=== PATIENT | male | born 1960 | race African-American/Black ===

== ENCOUNTER 2020-12-11 17:56 | Inpatient (IN) | payer MEDICAID ==
[~2020-12-11] VITALS: Ht 177.8 cm; Wt 87.1 kg
--- NOTE | 2020-12-11 18:15 | NUR ---
pt [facility]len [facility] per ems report, pt was noted acting bizzare and not responding to ems. pt placed on monitor. stable vitals. nad noted. awaiting md jimenez.
--- NOTE | 2020-12-11 18:24 | NUR ---
er provided at bedside for eval.
--- NOTE | 2020-12-11 18:45 | NUR ---
pt to radiology for head ct scan via [facility].
--- NOTE | 2020-12-11 19:11 | NUR ---
report given to jeanine suh for alicja.
[2020-12-11 19:14] LABS: BASOPHILS % (AUTO) 0.2 % (0.0-2.0); EOSINOPHILS % (AUTO) 0.2 % (0.0-6.0); HEMATOCRIT 42 % (39-51); HEMOGLOBIN 13.8 g/dL (13.5-17.5); LYMPHOCYTES # (AUTO) 0.8 K/uL (0.8-4.8); LYMPHOCYTES % (AUTO) 5.4 % (20.0-44.0); MEAN CORPUSCULAR HGB CONC 33 g/dl (31.0-36.0); MEAN CORPUSCULAR VOLUME 83 fL (80-96); MONOCYTES # (AUTO) 0.7 K/uL (0.1-1.30); MONOCYTES % (AUTO) 4.9 % (2.0-12.0); NEUTROPHILS # (AUTO) 13.5 K/uL (1.8-8.9); NEUTROPHILS % (AUTO) 89.3 % (43.0-81.0); PLATELET COUNT (AUTO) 326 K/uL (150-450); RED BLOOD CELL COUNT(AUTO) 4.98 MIL/uL (4.5-6.0); WHITE BLOOD COUNT (AUTO) 15.1 K/uL (4.3-11.0)
[2020-12-11 19:21] LABS: BILIRUBIN,URINE MODERATE (NEGATIVE); COLOR,URINE YELLOW (YELLOW); LEUKOCYTE ESTERASE ,URINE Negative (NEGATIVE); NITRITE, URINE Negative (NEGATIVE); PROTEIN,URINE 30 mg/dl (NEGATIVE); UGLUCOSE Negative (NEGATIVE); UROBILINOGEN,URINE 0.2 EU/dL (0.2)
[2020-12-11 19:24] LABS: CALCIUM, SERUM 9.6 mg/dL (8.5-10.1); CARBON DIOXIDE 27 mmol/L (21-32); CHLORIDE 104 mmol/L (98-107); CREATININE 1.3 mg/dL (0.6-1.3); GLUCOSE 108 mg/dL (74-106); SODIUM SERUM 141 mmol/L (136-145); UREA NITROGEN, BLOOD 39 mg/dL (7-18)
[2020-12-11 19:27] LABS: BACTERIA,URINE Rare /HPF (None Seen); SQUAMOUS EPITHELIAL CELL,UR Few /HPF (None Seen); WBC,URINE NONE SEEN /HPF (0-3)
[2020-12-11 19:29] LABS: ACETAMINOPHEN < 2 ug/ml (10-30); ALANINE AMINOTRANSFERASE 32 U/L (12-78); ALBUMIN 4.7 g/dL (3.4-5.0); ALCOHOL, BLOOD < 3 mg/dL (0-0); ALKALINE PHOSPHATASE 124 U/L (46-116); ASPARTATE AMINOTRANSFERASE 21 U/L (15-37); BILIRUBIN,DIRECT 0.2 mg/dL (0.0-0.2); BILIRUBIN,TOTAL 0.6 mg/dL (0.2-1.0); TOTAL PROTEIN, SERUM 9.8 g/dL (6.4-8.2)
--- NOTE | 2020-12-11 20:15 | NUR ---
covid swab sent to lab
[2020-12-11] MEDS ORDERED: ZOLPIDEM TARTRATE 5 MG TABLET PO PRN (23:30)
[2020-12-11] MEDS ORDERED: Z GUARD REMEDY 2 OZ OINT TP PRN (23:30)
[2020-12-11] MEDS ORDERED: MAGNESIUM HYDROXIDE 30 ML UDC PO PRN (23:30)
[2020-12-11] MEDS ORDERED: ONDANSETRON HCL/PF 4 MG/2 ML VIAL IVP PRN (23:30)
[2020-12-11] MEDS ORDERED: MAG HYDROX/AL HYDROX/SIMETH 30 ML UDC PO PRN (23:30)
--- NOTE | 2020-12-12 00:29 | NUR ---
PCR COLLECTED AND SENT TO LAB
--- NOTE | 2020-12-12 03:14 | NUR ---
REPORT GIVEN TO PETROS CANDELARIO
--- NOTE | 2020-12-12 03:25 | NUR ---
PATIENT TRANSFERRED UNDER [facility]
[2020-12-12 03:30] VITALS: BP 126/71
--- NOTE | 2020-12-12 03:30 | NUR ---
DIRECTOR COMMUNITY CENTERBRICK GRADER NOTE RECEIVED PT IN BED WITH EYES CLOSED, AROUSABLE TO STIMULATION. A/O X2. PT IS CONFUSED AT TIMES. PT IS STABLE ON ROOM AIR. NO SOB OR S/S OF RESPIRATORY DISTRESS NOTED. PT ON EXTERNAL MACHINE MOLDER SQUEEZE READING ST AT 118 BPM. PT HAS NO C/O PAIN OR DISCOMFORT AT THIS TIME. IV ACCESS IN RIGHT AC #18, INTACT AND PATENT. PT ORIENTED TO STAFF, ROOM, AND UNIT. SAFETY MEASURES MAINTAINED. BED IN LOWEST LOCKED POSITION, HOB ELEVATED, SIDE RAILS UP X2. CALL LIGHT AND TABLE WITHIN REACH. WILL CONTINUE TO MONITOR.
--- NOTE | 2020-12-12 06:02 | NUR ---
CORRECTIONS OFFICER CLOSING NOTE PT IS IN BED WITH EYES CLOSED, AROUSABLE TO STIMULATION. A/O X2. PT IS CONFUSED AT TIMES. PT IS STABLE ON ROOM AIR. NO SOB OR S/S OF RESPIRATORY DISTRESS NOTED. PT ON EXTERNAL FOREST SUPERVISOR READING ST AT 103 BPM. PT HAS NO C/O PAIN OR DISCOMFORT AT THIS TIME. IV ACCESS IS INTACT, PATENT, AND FLUSHING WELL. ALL NEEDS HAVE BEEN MET. SAFETY PRECAUTIONS MAINTAINED AT ALL TIMES. BED IN LOWEST LOCKED POSITION, HOB ELEVATED, SIDE RAILS UP X2. CALL LIGHT AND TABLE WITHIN REACH. WILL ENDORSE TO ONCOMING NURSE FOR DANIELLE.
[2020-12-12 06:47] LABS: BASOPHILS % (AUTO) 0.3 % (0.0-2.0); EOSINOPHILS % (AUTO) 1.7 % (0.0-6.0); HEMATOCRIT 38 % (39-51); HEMOGLOBIN 12.7 g/dL (13.5-17.5); LYMPHOCYTES # (AUTO) 1.2 K/uL (0.8-4.8); LYMPHOCYTES % (AUTO) 9.8 % (20.0-44.0); MEAN CORPUSCULAR HGB CONC 33 g/dl (31.0-36.0); MEAN CORPUSCULAR VOLUME 84 fL (80-96); MONOCYTES # (AUTO) 0.8 K/uL (0.1-1.30); MONOCYTES % (AUTO) 6.9 % (2.0-12.0); NEUTROPHILS # (AUTO) 9.8 K/uL (1.8-8.9); NEUTROPHILS % (AUTO) 81.3 % (43.0-81.0); PLATELET COUNT (AUTO) 286 K/uL (150-450); RED BLOOD CELL COUNT(AUTO) 4.56 MIL/uL (4.5-6.0); WHITE BLOOD COUNT (AUTO) 12.1 K/uL (4.3-11.0)
[2020-12-12] MEDS ORDERED: IV D5/0.45 NACL 1,000 ML IV PRN (07:30)
--- NOTE | 2020-12-12 07:34 | NUR ---
received asleep no acute distress.
[2020-12-12 07:44] LABS: CALCIUM, SERUM 9.4 mg/dL (8.5-10.1); MAGNESIUM 2.7 mg/dL (1.8-2.4); PHOSPHORUS 4.7 mg/dL (2.5-4.9); POTASSIUM 3.6 mmol/L (3.5-5.1)
[2020-12-12] MEDS: PANTOPRAZOLE 40 MG TABLET.DR PO SCH (07:49)
--- NOTE | 2020-12-12 07:54 | NUR ---
patient awake,alert ate 100% of breakfast without difficulty DR. LONG MADE AWARE AND REVERSE ORDERS.
[2020-12-12 07:59] LABS: THYROID STIMULATING HORMONE 0.619 uIU/mL (0.358-3.74)
[2020-12-12 08:20] VITALS: BP 134/78
--- NOTE | 2020-12-12 10:07 | NUR ---
offered DVT PUMPS PT. REFUSED , AWARE.
[2020-12-12] MEDS: QUETIAPINE FUMARATE 25 MG TABLET PO SCH ×2 (12:01→16:38)
--- NOTE | 2020-12-12 12:17 | NUR ---
talking to self ,seen by noelle horner and placed pt. on seroquel,will continue to monitor.
[2020-12-12 16:09] VITALS: BP 122/67
--- NOTE | 2020-12-12 18:51 | NUR ---
patient calm quiet no acute distress will continue to monitor.
[2020-12-12 20:00] VITALS: BP 109/68
[2020-12-13 04:00] VITALS: BP 114/72
--- NOTE | 2020-12-13 04:20 | NUR ---
RN notes Alert but very confused, talks to self, able to follow commands. No distress noted. Breathing even and unlabored. On room air tolerating well. Vital signs wnl. No physical manifestation of pain or discomfort. Kept clean and dry. Will endorse to next shift for continuity of care.
[2020-12-13] MEDS: PANTOPRAZOLE 40 MG TABLET.DR PO SCH (07:19)
[2020-12-13] MEDS: QUETIAPINE FUMARATE 25 MG TABLET PO SCH ×2 (08:00→16:42)
--- NOTE | 2020-12-13 08:06 | NUR ---
received awake alert,no acute distress,talking to self.
[2020-12-13 08:42] VITALS: BP 136/70
--- NOTE | 2020-12-13 09:20 | NUR ---
faxed to gps facesheet for psyche consult w/ dr. naz drake np.
--- NOTE | 2020-12-13 10:38 | NUR ---
report given to ishmael for continuity of care.
--- NOTE | 2020-12-13 11:30 | NUR ---
rn notes seen and examined by Dr. Vasquez with NNO at this time.
[2020-12-13 12:00] VITALS: BP 118/73
[2020-12-13] MEDS: risperiDONE 1 MG TABLET PO SCH (16:42)
--- NOTE | 2020-12-13 18:39 | NUR ---
RN notes Patient in bed, a/o x3, follows command, talks to self. seen by psychiatrist, medication ordered and given. No distress noted. Breathing even and unlabored. On room air, well tolerated. No manifestation of pain or discomfort. Kept clean and dry. Will endorse to next shift for continuity of care.
--- NOTE | 2020-12-13 19:50 | NUR ---
SUPERVISOR MAINSPRING FABRICATION NOTE REC'D PT IN BED. PT IS A/O X1-2. RESPONDS TO NAME. FOLLOWS COMMANDS. PT TALKS TO SELF, BASELINE. COOPERATIVE WITH CARE. PT IS ON ROOM AIR, TOLERATING WELL. NO S/S OF RESP DISTRESS OR SOB NOTED. PT IS ON M/S MONITORING. PT IV SITE, INTACT FLUSHED. PT DENIES PAIN. PT VERBALIZES THEY ARE HUNGRY, NOURISHMENT PROVIDED. PT ABLE TO USE URINAL INDEPENDENTLY. SAFETY MEASURES IN PLACE. HOB ELEVATED. SIDE RAILS UP X2. BED LOCKED IN LOWEST POSITION WITH BED ALARM ON. CALL LIGHT WITHIN REACH. WILL CONT TO MONITOR THROUGHOUT SHIFT.
[2020-12-13 20:00] VITALS: BP 117/64
[2020-12-14 04:00] VITALS: BP 94/58
--- NOTE | 2020-12-14 06:53 | NUR ---
FINANCIAL MANAGEMENT ANALYST CLOSING NOTE NO SIGNIFICANT CHANGE IN PT CONDITION, PT REMAINS ON ROOM AIR. NO DISTRESS NOTED. BREATHING EVEN AND UNLABORED. BED BATH DONE, LINENS CHANGED. PT DENIES PAIN. ALL NEEDS ATTENDED AT THIS TIME. SAFETY MEASURES IN PLACE. BED LOCKED LOWEST POSITION. BED ALARM ON. SIDE RAILS UP X2. CALL LIGHT WITHIN REACH WILL ENDORSE TO AM SHIFT FOR CONTINUATION OF CARE.
--- NOTE | 2020-12-14 07:30 | NUR ---
NATURAL SCIENCES PROFESSOR OPENING NOTE RECEIVED REPORT FROM PM NURSE. PT IN BED. PT IS A/O X1-2. RESPONDS TO NAME AND PLACE. FOLLOWS COMMANDS. PT TALKS TO SELF, BASELINE. COOPERATIVE WITH CARE. PT IS ON ROOM AIR, TOLERATING WELL. NO S/S OF RESP DISTRESS OR SOB NOTED. IV SITE, INTACT AND PATENT. DENIES PAIN. USE URINAL INDEPENDENTLY. SAFETY MEASURES IN PLACE. BED IS LOW AND IN LOCKED POSITION.CALL LIGHT WITHIN REACH. BED ALARM ON,SRX3.WILL CONTINUE TO MONITOR.
[2020-12-14 08:00] VITALS: BP 121/72
[2020-12-14] MEDS: risperiDONE 1 MG TABLET PO SCH ×2 (08:44→16:13)
[2020-12-14] MEDS: PANTOPRAZOLE 40 MG TABLET.DR PO SCH (08:44)
[2020-12-14] MEDS: QUETIAPINE FUMARATE 25 MG TABLET PO SCH ×2 (08:44→16:13)
[2020-12-14 16:00] VITALS: BP 113/71
--- NOTE | 2020-12-14 16:02 | NUR ---
PATIENT IS IN STABLE CONDITION,SALES FACILITATOR UPDATED ABOUT PATIENT CONDITION ,PATIENT AXOX2 W,REASONABLE BUT WITH TALKING TO HIMSELF MOST OF TIME,DEVIATION FROM NORMAL TALKING IN BETWEEN.SAFETY AND ASPIRATION MEASURES IN PLACE.WILL CONTINUE TO MONITOR.
[2020-12-14] MEDS: ACETAMINOPHEN 325 MG TABLET PO PRN (16:13)
--- NOTE | 2020-12-14 18:27 | NUR ---
ENDORSED TO RUBI MORRELL FOR TO GIVE REPORT TO PM NURSE PATIENT IN STABLE CONDITION.ALL NEEDS MET.
--- NOTE | 2020-12-14 19:10 | NUR ---
RN NOTE RECEIVED PATIENT IN BED, AO X 2, IN NO S/SX OF ACUTE DISTRESS AT THIS TIME. BREATHING EVEN AND UNLABORED, SATURATION AT 98% ON ROOM AIR, SR ON THE MONITOR, HR IS 89. NOTED IV SITE AT R AC 18G, PATENT AND FLUSHING WELL, NO S/S OF INFECTION OR INFILTRATION. SAFETY MEASURES IMPLEMENTED. PATIENT BED ALARM IS ON. HEAD OF BED ELEVATED. BED IS LOCKED, IN LOWEST POSITION AND SIDE RAILS UP. CALL LIGHT WITHIN REACH OF THE PATIENT. WILL CONTINUE TO MONITOR AND REASSESS FOR ANY CHANGES.
[2020-12-14 20:00] VITALS: BP 113/68
[2020-12-15] VITALS: BP 121/79
[2020-12-15 04:00] VITALS: BP 123/74
--- NOTE | 2020-12-15 07:36 | NUR ---
MS RN NOTE PATIENT IN BED , ALL NEEDS ATTENDED , ON RA NO SOB NOTED AT THIS TIME, RT AC HL INTACT AND FLUSHED WELL , BED IN LOWEST AND LOCKED POSITION , CALL LIGHT WITHIN REACH , PLAN OF CARE DISCUSSED WITH PATIENT , WILL CONT TO MONITOR CLOSELY
[2020-12-15 08:00] VITALS: BP 115/61
[2020-12-15] MEDS: PANTOPRAZOLE 40 MG TABLET.DR PO SCH (08:59)
[2020-12-15] MEDS: QUETIAPINE FUMARATE 25 MG TABLET PO SCH ×2 (08:59→16:39)
[2020-12-15] MEDS: risperiDONE 1 MG TABLET PO SCH ×2 (08:59→16:39)
--- NOTE | 2020-12-15 10:20 | NUR ---
Clinical Social Work Note Pt. is a 60 year old male who presents with symptoms of schizophrenia. He giggles inappropriately and seems quite euphoric.He knows the year is 2020 but answers "nobody told me" to all other questions. Dr Padilla is seeing the patient and has started him on anti-psychotics including Risperdol. per [place] RN, patient said he forgot how to urinate. Patient is cooperative but disorganized. He may have dementia vs decompensated schizophrenai. He is not suicidal or homicidal. Patient is too disorganized for a fdc placement. He will need a structured setting such as a board and care. Discussed with Ryan STALLINGS and Wilda Nair, classification case manager. No acute psychiatric needs. Placement needs to continue psych. regimen started by Dr Padilla.
--- NOTE | 2020-12-15 10:37 | NUR ---
DICTAPHONE MECHANIC NOTE SEEN BY APRIL ORDERED PT WILL F\U
--- NOTE | 2020-12-15 12:09 | NUR ---
Missing Persons Report Call made to local PD at [phone]. Message left and will await a callback.
--- NOTE | 2020-12-15 14:35 | NUR ---
MS RN NOTE UP ON CHAIR, ALL NEEDS ATTENDED , NOT IN DISTRESS, KEEP LEAN DRY CALL LIGHT WITHIN REACH
[2020-12-15 16:00] VITALS: BP 116/76
[2020-12-15] MEDS: ACETAMINOPHEN 325 MG TABLET PO PRN (16:39)
--- NOTE | 2020-12-15 18:40 | NUR ---
MS RN NOTES PT RESTING COMFORTABLY IN THE CHAIR, NO SOB, NO DISTRESS, ALL NEEDS ATTENDED, CALL LIGHT WITHIN REACH. WILL CONTINUE TO MONITOR.
--- NOTE | 2020-12-15 19:15 | NUR ---
RN OPENING NOTE PATIENT AMBULATING TO BATHROOM WHEN BEING RECEIVED. PATIENT IS A/O X 1-2. HE HAS A RAC 18 G PATENT AND INTACT. BREATHING EVEN AND UNLABORED, TOLERATES ROOM AIR. SAFETY MEASURES IN PLACE: BED LOCKED AND IN LOWEST POSITION, SIDE RAILS UP, CALL LIGHT WITHIN REACH. ENCOURAGED PATIENT TO CALL WHEN IN NEED. WILL MONITOR PATIENT CLOSELY.
[2020-12-15 20:00] VITALS: BP 111/70
[2020-12-16 04:00] VITALS: BP 141/77
--- NOTE | 2020-12-16 06:48 | NUR ---
RN CLOSING NOTE PATIENT IN BED, EYES CLOSED. PATIENT IS STILL CONFUSED AND DISORGANIZED, A/O X 1. INSISTING THAT IT IS MARCH THIS MONTH. PATIENT IS ABLE TO AMBULATE WITH STAND BY ASSIST. R AC 18 G PATENT AND INTACT. TOLERATES ROOM AIR, BREATHING EVEN AND UNLABORED. NO SIGNIFICANT CHANGES DURING THE SHIFT. SAFETY MEASURES IMPLEMENTED. ALL ORDERS CARRIED OUT, ALL NEEDS MET AND ATTENDED. WILL ENDORSE TO DAY SHIFT NURSE FOR DANIELLE.
--- NOTE | 2020-12-16 07:30 | NUR ---
received awake out of bed,no acute distress,mumbling talking to self.
[2020-12-16] MEDS: PANTOPRAZOLE 40 MG TABLET.DR PO SCH (07:53)
[2020-12-16 08:07] VITALS: BP 121/80
[2020-12-16] MEDS: ACETAMINOPHEN 325 MG TABLET PO PRN ×2 (08:25→17:13)
[2020-12-16] MEDS: risperiDONE 1 MG TABLET PO SCH ×2 (08:25→17:03)
[2020-12-16] MEDS: QUETIAPINE FUMARATE 25 MG TABLET PO SCH ×2 (08:25→16:58)
[2020-12-16] MEDS ORDERED: RISP1TAB7 PO (13:48)
[2020-12-16 16:00] VITALS: BP 120/74
--- NOTE | 2020-12-16 18:05 | NUR ---
RN CLOSING NOTES PATIENT DISHARGED BY AMBULANCE. DISHCHARGE PAPERWORK AND RESPIRDAL MEDICINE GIVEN TO PHYSICIAN OFFICE NURSE STAFF TO GIVE TO BOARD AND CARE. IV REMOVED WITH DRY DRESSING PLACE. NO SIGNS OF INFECTION. PATIENT CALM AND COOPERATIVE IN NO DISTRESS.
== END 2020-12-16 18:05 | DRG 812 ==
LOC: ER 18:37 → TELE1 12-12 02:55 → MEDSG1 12-12 13:15 → TELE1 12-14 20:09 → MEDSG1 12-15 07:24
PROVIDERS: ADMIT Student in an Organized Health Care Education/Training Program; ATTEND Student in an Organized Health Care Education/Training Program
DX: T42.4X1A Poisoning by benzodiazepines, accidental (unintentional), initial encounter (principal); G92 Toxic encephalopathy; F29 Unspecified psychosis not due to a substance or known physiological condition; E86.0 Dehydration; F13.10 Sedative, hypnotic or anxiolytic abuse, uncomplicated; Z59.0 Homelessness; D72.829 Elevated white blood cell count, unspecified; R79.89 Other specified abnormal findings of blood chemistry; Z91.19 Patient's noncompliance with other medical treatment and regimen; Y92.410 Unspecified street and highway as the place of occurrence of the external cause
CPT/HCPCS: 36415; 70450-TC; 71045-TC; 80048-TC; 80061-TC; 80076-TC; 81001; 83605-TC; 83735-TC; 84100-TC; 84443-TC; 84484-TC; 85025-TC; 87040-TC; 87081-TC; 97116-TC; 97530-TC; C9803; G0378; G0480; U0003